=== PATIENT | male | born 1950 | race African-American/Black ===

== ENCOUNTER → 2016-05-06 | Outpatient (CLI) | payer BC ==
[~2016-05-06] MED LIST: TIMO0.2528 OPB; TRAV0.00 OPB; [UNRECOGNIZED DRUG - REMARK] OP
[2016-05-06 11:20] LABS: BLOOD UREA NITROGEN 17 mg/dl (7-18); BUN/CREATININE RATIO 17.6 (10-20); CALCIUM 9.2 mg/dl (8.5-10.1); CARBON DIOXIDE 26 mmol/L (21-32); CHLORIDE 103 mmol/L (98-107); CREATININE 0.97 mg/dl (0.60-1.40); GLUCOSE 105 mg/dl (70-99); POTASSIUM 3.9 mmol/L (3.5-5.1); SODIUM 139 mmol/L (136-145)
[2016-05-06 11:30] LABS: PROSTATE SPECIFIC ANTIGEN 0.594 ng/ml (0.000-4.000); THYROID STIMULATING HORMONE 0.972 uIu/ml (0.300-4.500)
== END | disposition home or self-care (01) ==
LOC: C.LAB1850 09:04
PROVIDERS: ATTEND Internal Medicine
DX: N40.0 Benign prostatic hyperplasia without lower urinary tract symptoms (principal); N52.9 Male erectile dysfunction, unspecified; Z12.5 Encounter for screening for malignant neoplasm of prostate; E03.9 Hypothyroidism, unspecified; R73.9 Hyperglycemia, unspecified

== ENCOUNTER → 2016-07-24 | Outpatient (CLI) | payer BC ==
[2016-07-24 12:06] LABS: BASO % 0.2 %; BASO ABS # 0.01 K/uL (0-0.2); COMPLETE YES; EOS % 0.5 %; HEMATOCRIT 43.7 % (42-52); IG% 0.2 %; LYMPH % 26.6 %; LYMPH ABS # 1.45 K/uL (1.2-3.4); MEAN CELL VOLUME 88.5 fL (80-100); MEAN CORPUSCULAR HEMOGLOBIN 29.8 pg (25-34); MEAN CORPUSCULAR HGB CONC 33.6 g/dl (32-36); MEAN PLATELET VOLUME 10.6 fL (7.4-10.4); MONO % 6.6 %; NEUT % 65.9 %; PLATELET COUNT 166 K/uL (130-400); RED BLOOD COUNT 4.94 M/uL (4.7-6.1); WHITE BLOOD COUNT 5.46 K/uL (4.8-10.8)
[2016-07-24 12:18] LABS: CALCIUM 9.3 mg/dl (8.5-10.1)
[2016-07-24 12:24] LABS: ALT/SGPT 25 U/L (12-78); BLOOD UREA NITROGEN 17 mg/dl (7-18); BUN/CREATININE RATIO 17.4 (10-20); CARBON DIOXIDE 25 mmol/L (21-32); CHLORIDE 106 mmol/L (98-107); GLUCOSE 97 mg/dl (70-99); POTASSIUM 4.2 mmol/L (3.5-5.1); SODIUM 139 mmol/L (136-145)
[2016-07-24 12:27] LABS: ALKALINE PHOSPHATASE 49 U/L (45-117); AST/SGOT 14 U/L (15-37)
== END | disposition home or self-care (01) ==
LOC: C.LAB1850 10:11
PROVIDERS: ATTEND Internal Medicine
DX: K92.1 Melena (principal); R53.83 Other fatigue; Z11.59 Encounter for screening for other viral diseases

== ENCOUNTER → 2017-02-10 | Outpatient (CLI) | payer BC ==
[2017-02-10 09:54] LABS: BLOOD UREA NITROGEN 10 mg/dl (7-18); CALCIUM 8.9 mg/dl (8.5-10.1); CARBON DIOXIDE 24 mmol/L (21-32); CREATININE 0.95 mg/dl (0.60-1.40); GLUCOSE 97 mg/dl (70-99); POTASSIUM 3.8 mmol/L (3.5-5.1); SODIUM 138 mmol/L (136-145)
--- NOTE | 2017-04-17 07:44 | CODING QUERY NO DIAGNOSIS ---
TREATMENT RENDERED WITHOUT A DIAGNOSIS To promote full compliance with coding requirements relating to patient care, physician participation is requested in all cases of housekeeping director uncertainty. Please assist us with providing a diagnosis/symptom for the test(s) below: A diagnosis/symptom was not documented on your Order. A valid diagnosis/symptom is required to bill all insurances. Please remember that we are unable to code a diagnosis of rule out, probable, possible, questionable, or suspected. Tests that require a diagnosis: DOS: 02/10/17 * PARTIAL RENAL PROFILE DIAGNOSIS: Provider Signature: Date: Thank you Rupal Chavarria [employer] Once completed, please kindly fax back to [phone] For questions please call [phone]
== END | disposition home or self-care (01) ==
LOC: C.LAB1850 08:07
PROVIDERS: ATTEND Internal Medicine
DX: R53.83 Other fatigue (principal); R73.01 Impaired fasting glucose

== ENCOUNTER 2017-07-06 10:05 | Emergency (ER) | payer OTHER ==
[2017-07-06 10:10] VITALS: TEMP 37.1
[2017-07-06] MEDS ORDERED: TRAV0.00 OP (10:40)
[2017-07-06] MEDS ORDERED: DORZ2SOL17 OP (10:40)
[2017-07-06] MEDS ORDERED: LEVO75TA PO (10:40)
[2017-07-06] MEDS ORDERED: PSYL48.59 PO (10:40)
[2017-07-06] MEDS ORDERED: SODIUM CHLORIDE 0.9% 1000ML 1,000 ML IV STA (11:17)
[2017-07-06 11:20] LABS: BASO % 0.2 %; BASO ABS # 0.01 K/uL (0-0.2); HEMATOCRIT 41.3 % (42-52); HEMOGLOBIN 14.5 g/dL (14.0-18.0); LYMPH % 11.1 %; LYMPH ABS # 0.58 K/uL (1.2-3.4); MEAN CELL VOLUME 88.1 fL (80-100); MEAN CORPUSCULAR HEMOGLOBIN 30.9 pg (25-34); MEAN CORPUSCULAR HGB CONC 35.1 g/dl (32-36); MEAN PLATELET VOLUME 10.4 fL (7.4-10.4); MONO % 8.4 %; MONO ABS # 0.44 K/uL (0.11-0.59); NEUT % 80.3 %; PLATELET COUNT 117 K/uL (130-400); RED CELL DISTRIBUTION WIDTH CV 13.6 % (11.5-14.5); WHITE BLOOD COUNT 5.23 K/uL (4.8-10.8)
[2017-07-06 11:34] LABS: ALBUMIN 3.4 gm/dl (3.4-5.0); ALT/SGPT 23 U/L (12-78); AST/SGOT 12 U/L (15-37); BLOOD UREA NITROGEN 10 mg/dl (7-18); CALCIUM 8.1 mg/dl (8.5-10.1); CARBON DIOXIDE 25 mmol/L (21-32); CREATININE 1.01 mg/dl (0.60-1.40); GLUCOSE 91 mg/dl (70-99); LIPASE 50 U/L (73-393); POTASSIUM 3.2 mmol/L (3.5-5.1); SODIUM 138 mmol/L (136-145)
[2017-07-06 11:37] LABS: ALKALINE PHOSPHATASE 38 U/L (45-117); TOTAL PROTEIN 6.8 gm/dl (6.4-8.2)
--- NOTE | 2017-07-06 11:38 | DIAGNOSTIC IMAGING REPORT ---
PA CHEST RADIOGRAPH AND UPRIGHT AND SUPINE AP RADIOGRAPHS OF THE ABDOMEN CLINICAL HISTORY: Mid abdominal pain, nausea and vomiting. COMPARISON STUDY: No previous studies for comparison. FINDINGS: Lung volumes are normal. No pneumothorax or pleural effusion is noted. Cardiac size is normal. Mediastinal contours are unremarkable. There is no consolidation or evidence for pulmonary edema. There is no free air. The bowel gas pattern is normal. Pelvic calcifications statistically reflect phleboliths. IMPRESSION: 1. No free air or evidence of bowel obstruction. 2. No acute cardiopulmonary findings. Electronically signed by: Dwain Hopson M.D. 07/06/2017 11:37 AM Dictated Date/Time: 07/06/2017 11:35 AM
[2017-07-06] MEDS ORDERED: OPTIRAY 320 IV PRN (12:00)
--- NOTE | 2017-07-06 12:43 | DIAGNOSTIC IMAGING REPORT ---
CT OF THE ABDOMEN AND PELVIS WITH CONTRAST CLINICAL HISTORY: Abdominal pain, nausea and vomiting. COMPARISON STUDY: Abdominal series performed earlier today. TECHNIQUE: Following IV administration of 95 mL of Optiray-320, axial images of the abdomen and pelvis were obtained from the lung bases to the proximal femurs. Images were reviewed in the axial, sagittal, and coronal planes. IV contrast was administered without complication. A dose lowering technique was utilized adhering to the principles of ALARA. CT DOSE: 1011.50 mGycm FINDINGS: Lung bases are clear. The liver, spleen, adrenal glands, right kidney and pancreas are normal. A 6 mm hypodense lesion within the upper pole the left kidney is too small to characterize but likely reflects a cyst. There is mild mesenteric infiltration without associated lymphadenopathy. No enlarged abdominal or pelvic lymph nodes are present. There is no hydronephrosis. There is no peripancreatic or pericholecystic infiltration. Caliber and wall thickness of small and large bowel are normal. There is left colon diverticulosis without evidence for acute diverticulitis. The appendix is normal. Trace fluid is noted within the left lower quadrant. Prostate is mildly enlarged. Bladder wall thickening is accentuated by underdistention. There is no pneumatosis, free air or portal venous gas. No suspicious osseous lesions are present. IMPRESSION: 1. Left colon diverticulosis without evidence for acute diverticulitis. 2. Trace fluid within the left lower quadrant. 3. Normal appendix. 4. Bladder wall thickening. This is accentuated by underdistention and could be correlated with urinalysis. Electronically signed by: Dwain Hopson M.D. 07/06/2017 12:42 PM Dictated Date/Time: 07/06/2017 12:30 PM
[2017-07-06 13:33] VITALS: BP 106/60; PULSE 47; O2SAT 99
--- NOTE | 2017-07-06 13:44 | EMERGENCY ROOM VISIT NOTE ---
History First contact with patient: 10:16 Chief Complaint: ABDOMINAL PAIN Stated Complaint: LOBITO GASTROINTESTINAL PAINC/VIRUS, DEHYDRTATED Nursing Triage Summary: pt presents to ed with "transverse colon" pain. pt states developed severe gastrointestinal pain last pm, then vomited x's 1. pt states feels may be dehydrated from vomiting History of Present Illness Patient is a 66-year-old male who presents emergency department for evaluation of lower abdominal pain with associated nausea and vomiting that started acutely yesterday. Patient states that he has had some issues with chronic constipation, he has been using Metamucil daily for the last month and has been using a stool softener and increasing his water intake. He states that when he woke up yesterday he did not have much of an appetite and did not eat until the afternoon at which point he had a piece of cheese, him and let us. Around 130 yesterday afternoon, he developed a sharp pain across his entire lower abdomen, and around his bellybutton. He had associated nausea, which did progress to several episodes of vomiting. Afterwards, he just tried sipping on water. He states the pain lost its sharpness in intensity and is now dull, episodic and does not radiate. He feels a little bit dehydrated because he has not been able to drink a lot of water. He denies any diarrhea, his last bowel movement was 3 days ago. He denies feeling distended. No chest pain, palpitations or shortness of breath. No fever or chills. He denies any urinary problems. He denies history of GERD. He has a strong family history of colon cancer, his last colonoscopy was 5 years ago he had benign polyps removed at that time, he is scheduled for a colonoscopy next week and to see the GI this week. He does have a problem with hemorrhoids and notes occasionally some bright red blood in the toilet after bowel movements. He presently rates his pain is 0/10. Review of Systems Review of systems as per HPI. All other systems reviewed were negative. 10 systems reviewed. Past Medical/Surgical History Medical Problems: (1) Constipation (2) Hypothyroidism Nos Electronic medical records are reviewed and summarized as above/below. See Problem List. Family History FH: colon cancer Social History Smoking Status: Former Smoker Marital Status: Housing Status: lives with significant other Occupation Status: employed Current/Historical Medications Scheduled Dorzolamide Hcl (Trusopt Oph), 1 DROPS OP BID Levothyroxine Sodium (Synthroid), 75 MCG PO DAILY Psyllium (Metamucil), 2 TBS PO DAILY Travoprost (Travatan Z), 1 DROPS OP HS Physical Exam Vital Signs Date Time Temp Pulse Resp B/P (MAP) Pulse Ox O2 Delivery O2 Flow Rate FiO2 07/06/17 13:33 47 16 106/60 99 Room Air 07/06/17 12:03 55 16 109/65 98 Room Air 07/06/17 10:10 37.1 62 20 129/81 98 Room Air Physical Exam CONSTITUTIONAL: Patient is a pleasant, well-appearing 66-year-old male who is awake and alert and in no acute distress. EYES: Pupils equal, round, reactive to light and accommodation. EOMs intact without nystagmus. Sclera are anicteric. ENT: Tympanic membranes intact, with normal landmarks. External canals are clear. Oral and nasopharynx are clear. Mucous membranes are moist, no lesions , tongue and gums appear normal. CARDIOVASCULAR: Regular rate and rhythm, with normal S1 and S2, no murmur or gallop or rub is heard. No carotid bruits auscultated. No JVD. Peripheral pulses easy to palpable. RESPIRATORY: Breath sounds equal and clear to auscultation without wheezes, rales, or rhonchi heard. Full and equal chest expansion without accessory muscle use or retractions. GI: Bowel sounds are present. Abdomen is soft, nontender, nondistended. No organomegaly. No pulsatile masses. No guarding or rebound. MUSCULOSKELETAL: Full range of motion of extremities x 4 with good strength. No cyanosis, edema, joint tenderness or swelling. No deformity. INTEGUMENTARY: No lesions or rash, normal skin turgor. NEUROLOGICAL: Alert, oriented, and cooperative. Cranial nerves, sensation and strength grossly intact. Pupils round, equal, and react to light, EOMs are full. LYMPH: No lymphadenopathy. Medical Decision & Procedures ER Provider Diagnostic Interpretation: PA CHEST RADIOGRAPH AND UPRIGHT AND SUPINE AP RADIOGRAPHS OF THE ABDOMEN CLINICAL HISTORY: Mid abdominal pain, nausea and vomiting. COMPARISON STUDY: No previous studies for comparison. FINDINGS: Lung volumes are normal. No pneumothorax or pleural effusion is noted. Cardiac size is normal. Mediastinal contours are unremarkable. There is no consolidation or evidence for pulmonary edema. There is no free air. The bowel gas pattern is normal. Pelvic calcifications statistically reflect phleboliths. IMPRESSION: 1. No free air or evidence of bowel obstruction. 2. No acute cardiopulmonary findings. CT OF THE ABDOMEN AND PELVIS WITH CONTRAST CLINICAL HISTORY: Abdominal pain, nausea and vomiting. COMPARISON STUDY: Abdominal series performed earlier today. TECHNIQUE: Following IV administration of 95 mL of Optiray-320, axial images of the abdomen and pelvis were obtained from the lung bases to the proximal femurs. Images were reviewed in the axial, sagittal, and coronal planes. IV contrast was administered without complication. A dose lowering technique was utilized adhering to the principles of ALARA. CT DOSE: 1011.50 mGycm FINDINGS: Lung bases are clear. The liver, spleen, adrenal glands, right kidney and pancreas are normal. A 6 mm hypodense lesion within the upper pole the left kidney is too small to characterize but likely reflects a cyst. There is mild mesenteric infiltration without associated lymphadenopathy. No enlarged abdominal or pelvic lymph nodes are present. There is no hydronephrosis. There is no peripancreatic or pericholecystic infiltration. Caliber and wall thickness of small and large bowel are normal. There is left colon diverticulosis without evidence for acute diverticulitis. The appendix is normal. Trace fluid is noted within the left lower quadrant. Prostate is mildly enlarged. Bladder wall thickening is accentuated by underdistention. There is no pneumatosis, free air or portal venous gas. No suspicious osseous lesions are present. IMPRESSION: 1. Left colon diverticulosis without evidence for acute diverticulitis. 2. Trace fluid within the left lower quadrant. 3. Normal appendix. 4. Bladder wall thickening. This is accentuated by underdistention and could be correlated with urinalysis. Laboratory Results 07/06/17 11:09 Red Blood Count 4.69, Mean Corpuscular Volume 88.1, Mean Corpuscular Hemoglobin 30.9, Mean Corpuscular Hemoglobin Concent 35.1, Mean Platelet Volume 10.4, Neutrophils (%) (Auto) 80.3, Lymphocytes (%) (Auto) 11.1, Monocytes (%) (Auto) 8.4, Eosinophils (%) (Auto) 0.0, Basophils (%) (Auto) 0.2, Neutrophils # (Auto) 4.20, Lymphocytes # (Auto) 0.58, Monocytes # (Auto) 0.44, Eosinophils # (Auto) 0.00, Basophils # (Auto) 0.01 07/06/17 11:09 Test 07/06/17 11:09 White Blood Count 5.23 K/uL (4.8-10.8) Red Blood Count 4.69 M/uL (4.7-6.1) Hemoglobin 14.5 g/dL (14.0-18.0) Hematocrit 41.3 % (42-52) Mean Corpuscular Volume 88.1 fL (80-100) Mean Corpuscular Hemoglobin 30.9 pg (25-34) Mean Corpuscular Hemoglobin Concent 35.1 g/dl (32-36) Platelet Count 117 K/uL (130-400) Mean Platelet Volume 10.4 fL (7.4-10.4) Neutrophils (%) (Auto) 80.3 % Lymphocytes (%) (Auto) 11.1 % Monocytes (%) (Auto) 8.4 % Eosinophils (%) (Auto) 0.0 % Basophils (%) (Auto) 0.2 % Neutrophils # (Auto) 4.20 K/uL (1.4-6.5) Lymphocytes # (Auto) 0.58 K/uL (1.2-3.4) Monocytes # (Auto) 0.44 K/uL (0.11-0.59) Eosinophils # (Auto) 0.00 K/uL (0-0.5) Basophils # (Auto) 0.01 K/uL (0-0.2) RDW Standard Deviation 44.0 fL (36.4-46.3) RDW Coefficient of Variation 13.6 % (11.5-14.5) Immature Granulocyte % (Auto) 0.0 % Immature Granulocyte # (Auto) 0.00 K/uL (0.00-0.02) Urine Color DK YELLOW Urine Appearance CLEAR (CLEAR) Urine pH 6.0 (4.5-7.5) Urine Specific [place] 1.023 (1.000-1.030) Urine Protein NEG (NEG) Urine Glucose (UA) NEG (NEG) Urine Ketones NEG (NEG) Urine Occult Blood NEG (NEG) Urine Nitrite NEG (NEG) Urine Bilirubin NEG (NEG) Urine Urobilinogen NEG (NEG) Urine Leukocyte Esterase NEG (NEG) Anion Gap 8.0 mmol/L (3-11) Estimated GFR () 88.8 Estimated GFR (Non- 76.6 BUN/Creatinine Ratio 9.8 (10-20) Calcium Level 8.1 mg/dl (8.5-10.1) Total Bilirubin 0.6 mg/dl (0.2-1) Aspartate Amino Transf (AST/SGOT) 12 U/L (15-37) Alanine Aminotransferase (ALT/SGPT) 23 U/L (12-78) Alkaline Phosphatase 38 U/L (45-117) Total Protein 6.8 gm/dl (6.4-8.2) Albumin 3.4 gm/dl (3.4-5.0) Globulin 3.4 gm/dl (2.5-4.0) Albumin/Globulin Ratio 1.0 (0.9-2) Lipase 50 U/L (73-393) Medications Administered Medications (Trade) Dose Ordered Sig/Indra Route Start Time Stop Time Status Last Admin Dose Admin Sodium Chloride 1,000 ml @ 999 mls/hr Q1H1M STAT IV 07/06/17 11:17 07/06/17 12:17 DC 07/06/17 11:45 999 MLS/HR ED Course The patient was seen and assessed as above. Old records were reviewed, including prior colonoscopy reports. IV lock was initiated and laboratory studies were collected. He was hydrated with normal saline solution. He was offered, but declined any medications for nausea or pain while in the emergency department. CBC with differential, CMP, lipase and urinalysis were performed. Acute abdominal series was obtained and was unremarkable. Laboratory studies noted a normal white count, no left shift or bandemia. H&H is normal. Platelet count 117,000. Electrolytes noted potassium slightly low at 3.2. Renal function is normal. LFTs and transaminases are not elevated. Lipase is not indicative of acute pancreatitis. Urine analysis was completely clear without signs of infection. CT scan of the abdomen and pelvis with IV contrast was ordered. Patient has left colonic diverticulosis without evidence for acute diverticulitis. Bladder wall thickening was noted, which was likely related to underdistention, as his urinalysis there is trace fluid in the left lower quadrant, mild mesenteric infiltration without associated lymphadenopathy. No peripancreatic or pericholecystic infiltration. Appendix is visualized and was normal. All laboratory and diagnostic imaging studies were reviewed with attending physician and discuss with the patient and his at length. Supportive care measures were discussed. Differential diagnoses entertained included UTI, pyelonephritis, renal colic, diverticulitis, bowel obstruction, perforation, abscess, mass or malignancy, prostatitis, among others. Medical Decision See ED Course. Medication Reconcilliation Current Medication List: was personally reviewed by me Blood Pressure Screening Patient's blood pressure: Normal blood pressure Blood pressure disposition: Did not require urgent referral Impression Primary Impression: Lower abdominal pain Additional Impression: Nausea & vomiting Departure Information Referrals RV. Dunn MD (PCP) Patient Instructions My [facility] Additional Instructions Acetaminophen(Tylenol) may be used for fever or pain. Use 1000mg every eight hours as needed. Avoid using more than 3000mg in a 24 hour period. This is available over the counter. Rest and drink plenty of fluids as tolerated. Slow sips of water or sports drinks are recommended instead of large amounts all at once. Continue current medications. Once your stomach is settled start with a clear liquid diet (jello, soup broth, etc.) and then advance as tolerated. You should avoid full, heavy meals for about 24 hrs from the time your symptoms resolved. Return to the ER immediately for worsening or persistent abdominal pain, vomiting, fevers, chest pains, difficulty breathing, black or bloody stools, worsening of your condition, or as needed. Follow up with your primary physician in 1-2 days for a recheck of your current condition. Problem Qualifiers
== END 2017-07-06 13:54 | disposition home or self-care (01) ==
LOC: C.EDB 10:07
DX: R10.9 Unspecified abdominal pain (principal); R11.2 Nausea with vomiting, unspecified; E03.9 Hypothyroidism, unspecified; Z87.891 Personal history of nicotine dependence

== ENCOUNTER → 2017-07-16 | Day surgery (SDC) | payer BC, OTHER ==
[2017-07-10 09:58] VITALS: Ht 170.2 cm; Wt 97.7 kg
[~2017-07-16] VITALS: Ht 170.2 cm; Wt 97.7 kg
[~2017-07-16] MED LIST changes: +DOCU100C31 PO; +DORZ2SOL17 OP; +GLYCOPYRROLATE INJ 0.2 MG/ML VIAL ONE; +LEVO75TA PO; +LIDOCAINE HCL 2% 2 ML VIAL (20MG/ML) ONE; +MISCCAP80 PO; +PROPOFOL IV EMULSION 10 MG/ML 20 ML VIAL ONE; +PSYL48.59 PO; -TIMO0.2528 OPB; +TRAV0.00 OP; -TRAV0.00 OPB; -[UNRECOGNIZED DRUG - REMARK] OP
--- NOTE | 2017-07-16 13:18 | Endo History and Physical ---
History & Physical Date of Service: July 16, 2017. Chief Complaint: h/o polyps Referring Physician: Dr. Dunn History of Present Illness 66 yo male who presents for colonoscopy secondary to history of colon polyps. Past Surgical History Hx Cardiac Surgery: No Hx Internal Defibrillator: No Hx Pacemaker: No Hx Abdominal Surgery: No Hx of Implantable Prosthesis: No Hx Post-Op Nausea and Vomiting: No Hx Cancer Surgery: No Hx Thoracic Surgery: No Hx Orthopedic: No Hx Urinary Tract Surgery: No Family History Colon CA, Polyp Social History Smoking Status: Former Smoker Hx Substance Use: No Hx Alcohol Use: Yes (SOCIALLY ONCE A MONTH) Allergies Coded Allergies: No Known Allergies (Unverified , 07/16/17) Current Medications Reported Home Medications Medications Dose Route/Sig Max Daily Dose Days Date Category Probiotic (Probiotic Product) 1 Cap Cap 1 Tab PO DAILY 07/10/17 Reported Docusate Sodium 100 Mg Cap 1 Cap PO DAILY 30 07/10/17 Reported Synthroid (Levothyroxine Sodium) 75 Mcg Tab 75 Mcg PO DAILY 07/06/17 Reported Metamucil (Psyllium) 48.57 % Pow 2 Tbs PO DAILY 07/06/17 Reported Trusopt Oph (Dorzolamide Hcl) 2 % Kendra 1 Drops OP BID 07/06/17 Reported Travatan Z (Travoprost) 0.004 % Emmanuel 1 Drops OP HS 07/06/17 Reported Vital Signs Weight (Kilograms): 97.73 Height (Feet): 5 Height (Inches): 7 Date Time Temp Pulse Resp B/P (MAP) Pulse Ox O2 Delivery O2 Flow Rate FiO2 07/16/17 13:09 36.7 53 18 121/73 (89) 96 Room Air Physical Exam General Appearance: WD/WN, no apparent distress Respiratory/Chest: Auscultation: breath sounds normal Cardiovascular: Heart Auscultation: RRR Abdomen: Bowel Sounds: normal Inspection & Palpation: soft, non-distended, no tenderness, guarding & rebound Assessment and Plan Assessment: 66 yo male who presents for colonoscopy secondary to history of colon polyps. Plan: Proceed with colonoscopy.
--- NOTE | 2017-07-16 14:32 | GI REPORT ---
Patient Name: Arun Brady Procedure Date: 07/16/2017 1:15 PM Date of : 1950 Admit Type: Outpatient Age: 66 Gender: Male Attending MD: Cristobal Pimentel DO Procedure: Colonoscopy Providers: Cristobal Pimentel DO Referring MD: Marisa Dunn Indications: High risk colon cancer surveillance: Personal history of colonic polyps Medicines: Monitored Anesthesia Care Complications: No immediate complications. Estimated Blood Loss: Estimated blood loss: none. Procedure: Pre-Anesthesia Assessment: - Prior to the procedure, a History and Physical was performed, and patient medications and allergies were reviewed. The patient's tolerance of previous anesthesia was also reviewed. The risks and benefits of the procedure and the sedation options and risks were discussed with the patient. All questions were answered, and informed consent was obtained. Prior Anticoagulants: The patient has taken no previous anticoagulant or antiplatelet agents. ASA Grade Assessment: II - A patient with mild systemic disease. After reviewing the risks and benefits, the patient was deemed in satisfactory condition to undergo the procedure. After I obtained informed consent, the scope was passed under direct vision. Throughout the procedure, the patient's blood pressure, pulse, and oxygen saturations were monitored continuously. The scope was introduced through the anus and advanced to the cecum, identified by appendiceal orifice and ileocecal valve. The colonoscopy was performed without difficulty. The patient tolerated the procedure well. The quality of the bowel preparation was good. The ileocecal valve, appendiceal orifice, and rectum were photographed. Findings: The perianal and digital rectal examinations were normal. Five sessile polyps were found in the descending colon, transverse colon and cecum. The polyps were 4 to 11 mm in size. These polyps were removed with a hot snare. Resection and retrieval were complete. A 3 mm polyp was found in the cecum. The polyp was sessile. The polyp was removed with a cold biopsy forceps. Resection and retrieval were complete. Multiple small-mouthed diverticula were found in the sigmoid colon. Non-bleeding internal hemorrhoids were found during retroflexion. The hemorrhoids were small. Impression: - Five 4 to 11 mm polyps in the descending colon, in the transverse colon and in the cecum, removed with a hot snare. Resected and retrieved. - One 3 mm polyp in the cecum, removed with a cold biopsy forceps. Resected and retrieved. - Diverticulosis in the sigmoid colon. - Non-bleeding internal hemorrhoids. Recommendation: - Resume previous diet. - Continue present medications. - Repeat colonoscopy date to be determined after pending pathology results are reviewed for surveillance. - Return to primary care physician as previously scheduled. Cristobal Pimentel, DO 07/16/2017 2:31:43 PM This report has been signed electronically. Note Initiated On: 07/16/2017 1:15 PM Number of Addenda: 0 I attest to the content of the Intraoperative Record and orders documented therein, exceptions below {[id number]}
--- NOTE | 2017-07-16 14:48 | Anesthesiology Progress Note ---
Anesthesia Post Op Note Date & Time July 16, 2017 at 14:48 Vital Signs Pain Intensity: 0 Vital Signs Past 12 Hours Date Time Temp Pulse Resp B/P (MAP) Pulse Ox O2 Delivery O2 Flow Rate FiO2 07/16/17 14:39 58 59 113/68 (83) 96 Room Air 07/16/17 14:24 52 98 105/59 (74) 96 Room Air 07/16/17 13:09 36.7 53 18 121/73 (89) 96 Room Air Notes Mental Status: alert / awake / arousable, participated in evaluation Pt Amnestic to Procedure: Yes Nausea / Vomiting: adequately controlled Pain: adequately controlled Airway Patency, RR, SpO2: stable & adequate BP & HR: stable & adequate Hydration State: stable & adequate Anesthetic Complications: no major complications apparent
[2017-07-16 14:54] VITALS: BP 124/62; PULSE 58; O2SAT 96
--- NOTE | 2017-07-16 15:01 | Discharge Instructions ---
Endoscopy Patient Instructions Date / Procedure(s) Performed July 16, 2017. Colonoscopy Allergy Information Coded Allergies: No Known Allergies (Unverified , 07/16/17) Discharge Date / Findings July 16, 2017. Colon polyps Diverticulosis Internal hemorrhoids Medication Instructions Stopped Medication(s): All meds stopped 07/14/17. Restart Stopped Medication(s): OK to resume all medications today as prescribed Reported Home Medications Medications Dose Route/Sig Max Daily Dose Days Date Category Probiotic (Probiotic Product) 1 Cap Cap 1 Tab PO DAILY 07/10/17 Reported Docusate Sodium 100 Mg Cap 1 Cap PO DAILY 30 07/10/17 Reported Synthroid (Levothyroxine Sodium) 75 Mcg Tab 75 Mcg PO DAILY 07/06/17 Reported Metamucil (Psyllium) 48.57 % Pow 2 Tbs PO DAILY 07/06/17 Reported Trusopt Oph (Dorzolamide Hcl) 2 % Kendra 1 Drops OP BID 07/06/17 Reported Travatan Z (Travoprost) 0.004 % Emmanuel 1 Drops OP HS 07/06/17 Reported Provider Instructions Activity Restrictions - No exercising or heavy lifting for 24 hours. - Do not drink alcohol the day of the procedure. - Do not drive a car or operate machinery until the day after the procedure. - Do not make any important decisions or sign important papers in 24 hours after the procedure. Following Day: - Return to full activity which may include returning to work/school. Diet Start your diet with liquids and light foods (jello, soup, juice, toast). Then eat your usual diet if not nauseated. Treatment For Common After Affects For mild abdominal pain, bloating, or excessive gas: - Rest - Eat lightly - Lie on right side Follow-Up Information Follow-up with Dr. Dunn as scheduled Anesthesia Information What You Should Know You have had a procedure that required some medicine to reduce anxiety and discomfort. This treatment is called moderate sedation. After receiving the treatment, you may be sleepy, but you will be able to breathe on your own. The effects of the treatment may last for several hours. Follow these instructions along with Activity/Diet recommendations noted above: * Do NOT do anything where dizziness or clumsiness would be dangerous. * Rest quietly at home today, then you can be up and about tomorrow. * Have a responsible person stay with you the rest of today. * You may have had an I.V. today. If so, you may take the dressing off later today. Recommendations Call your doctor if: * Trouble breathing * Continuous vomiting for more than 24 hours * Temperature above 101 degrees * Severe abdominal pain or bloating * Pain not relieved by pain medicine ordered * There is increased drainage or redness from any incision * A large amount of rectal bleeding greater than 2-3 tablespoons. (If you had a polyp/s removed or have hemorrhoids, a small amount of blood - from the rectum is to be expected.) * You have any unanswered questions or concerns. IN THE EVENT OF A SERIOUS EMERGENCY, GO TO THE NEAREST EMERGENCY ROOM Your discharge instructions were prepared by provider Cristobal Pimentel. Patient Instructions Signature Page Arun Brady Patient (or Guardian) Signature/Date: I have read and understand the instructions given to me by my caregivers. Caregiver/RN/Doctor Signature/Date: The above-named patient and/or guardian has received patient instructions on this date. + Original Patient Signature Page (only) stays with chart. Please make copy for patient.
== END | disposition home or self-care (01) ==
LOC: C.GI 12:45
PROVIDERS: ATTEND Internal Medicine
DX: Z12.11 Encounter for screening for malignant neoplasm of colon (principal); Z86.010 Personal history of colon polyps; D12.0 Benign neoplasm of cecum; D12.3 Benign neoplasm of transverse colon; D12.4 Benign neoplasm of descending colon; K57.30 Diverticulosis of large intestine without perforation or abscess without bleeding; K64.8 Other hemorrhoids